=== PATIENT | female | born 1995 | race African-American/Black ===

== ENCOUNTER 2019-09-10 10:23 | Emergency (ER) | payer OTHER ==
[2019-09-10 10:48] VITALS: BMI 33.5
--- NOTE | 2019-09-10 11:08 | PDOC ---
History of Present Illness - History of Present Illness Initial Comments: 09/10/19 11:08 24 year old female 10 weeks by LMP (July 01, 2018 ) presenting with HTN, sore throat, and nasal congestion from her first CASE CHECKER appointment at [address] [place] [address]. She states that she was have her vitals measured in the clinic prior to seeing her CASE CHECKER and was told that her pressure was high and that she was high risk. She does admit that she was told her blood pressure was high prior to the as well but she was not medicated. Denies chest pain , sob, headache, fevers, chills, or other symptoms. <Ric Jin - Last Filed: 09/10/19 16:16> <Johan Torre - Last Filed: 09/14/19 10:35> - General Chief Complaint: Blood Pressure Problem Stated Complaint: HYPERTENSION Time Seen by Provider: 09/10/19 11:02 Past History - Past Medical History CVA: No COPD: No CHF: No DVT: No Dementia: No - Immunization History Immunization Up to Date: Yes - Psycho Social/Smoking Cessation Hx Smoking History: Never smoked Hx Alcohol Use: No Drug/Substance Use Hx: No <Ric Jin - Last Filed: 09/10/19 16:16> <Johan Torre - Last Filed: 09/14/19 10:35> - Past Medical History Allergies/Adverse Reactions: Allergies Allergy/AdvReac Type Severity Reaction Status Date / Time No Known Allergies Allergy Verified 09/10/19 10:43 Home Medications: Ambulatory Orders Labetalol HCl [Normodyne -] 200 mg PO TID #30 tablet 09/10/19 Review of Systems - Review of Systems Constitutional: No: Chills, Diaphoresis, Fever HEENTM: No: Eye Pain, Blurred Vision, Tearing Respiratory: Yes: Cough. No: Orthopnea, Shortness of Breath Cardiac (ROS): No: Chest Pain, Irregular Heart Rate, Lightheadedness, Palpitations ABD/GI: No: Diarrhea, Nausea, Vomiting : No: Burning, Dysuria, Discharge Musculoskeletal: No: Back Pain Integumentary: No: Bruising, Erythema, Flushing Neurological: No: Headache, Numbness, Paresthesia, Tremors, Weakness Psychiatric: No: Anxiety, Depression Endocrine: No: Flushing, Increased Thirst, Increased Urine, Unexplained Weight Gain Hematologic/Lymphatic: No: Anemia, Blood Clots, Easy Bleeding <Ric Jin - Last Filed: 09/10/19 16:16> *Physical Exam - Vital Signs Last Vital Signs Temp Pulse Resp BP Pulse Ox 97.8 F 83 18 157/110 H 99 09/10/19 10:43 09/10/19 10:43 09/10/19 10:43 09/10/19 10:43 09/10/19 10:43 - Physical Exam General Appearance: Yes: Nourished, Appropriately Dressed. No: Apparent Distress HEENT: positive: EOMI, AUGUST. negative: Normal ENT Inspection (nasal congestion) , Normal Voice (slightly coarse voice) Neck: positive: Trachea midline, Normal Thyroid, Supple, Lymphadenopathy (R), Lymphadenopathy (L). negative: Tender, Rigid Respiratory/Chest: positive: Lungs Clear, Normal Breath Sounds. negative: Chest Tender, Respiratory Distress, Accessory Muscle Use Cardiovascular: positive: Regular Rhythm, Regular Rate Gastrointestinal/Abdominal: positive: Normal Bowel Sounds, Flat, Soft. negative : Tender Lymphatic: negative: Adenopathy, Tenderness Musculoskeletal: positive: Normal Inspection. negative: Decreased Range of Motion Extremity: positive: Normal Capillary Refill, Normal Inspection, Normal Range of Motion. negative: Tender Integumentary: positive: Normal Color, Dry, Warm Neurologic: positive: Fully Oriented, Alert, Normal Mood/Affect, Normal Response , Motor Strength 5/5 <Ric Jin - Last Filed: 09/10/19 16:16> - Vital Signs Last Vital Signs Temp Pulse Resp BP Pulse Ox 98.5 F 101 H 19 140/87 99 09/10/19 15:33 09/10/19 16:24 09/10/19 15:33 09/10/19 16:24 09/10/19 16:24 <Johan Torre - Last Filed: 09/14/19 10:35> ED Treatment Course - LABORATORY CBC & Chemistry Diagram: 09/10/19 11:20 09/10/19 11:20 <Ric Jin - Last Filed: 09/10/19 16:16> - LABORATORY CBC & Chemistry Diagram: 09/10/19 11:20 09/10/19 11:20 - ADDITIONAL ORDERS Additional order review: 09/10/19 14:44 Throat Culture - Final Throat NO BETA HEMOLYTIC STREPTOCOCCI ISOLATED 09/10/19 11:46 Urine Culture - Final Urine - Urine Clean Catch NO GROWTH OBTAINED 09/10/19 11:20 RBC 4.68 MCV 81.1 MCHC 34.1 RDW 15.6 MPV 9.1 Neutrophils % 72.0 Lymphocytes % 15.9 Monocytes % 9.2 Eosinophils % 2.5 Basophils % 0.4 - Medications Given in the ED: ED Medications Discontinued Medications Generic Name Dose Route Start Last Admin Trade Name Dmitry PRN Reason Stop Dose Admin Labetalol HCl 200 mg 09/10/19 11:16 09/10/19 11:40 Normodyne - PO 09/10/19 11:17 200 mg ONCE ONE Administration Labetalol HCl 200 mg 09/10/19 13:16 09/10/19 13:38 Normodyne - PO 09/10/19 13:17 200 mg ONCE ONE Administration Nifedipine 30 mg 09/10/19 14:41 09/10/19 14:51 Procardia Xl - PO 09/10/19 14:42 30 mg DAILY STA Administration <Johan Torre - Last Filed: 09/14/19 10:35> Medical Decision Making - Medical Decision Making 24 year old female with no documented pmh but told that she was hypertensive in the past but never prescribed medicine presenting 10 weeks by lmp with HTN. Pressures here were in the 170s which eventually were controlled to 142/90 after labetalol 200 mg x2 and nifedipine 30 PO after talking to Dr. Mccormick. 09/10/19 15:54 <Ric Jin - Last Filed: 09/10/19 16:16> Discharge - Discharge Information Problems reviewed: Yes - Admission No <Ric Jin - Last Filed: 09/10/19 16:16> <Johan Torre - Last Filed: 09/14/19 10:35> - Discharge Information Clinical Impression/Diagnosis: HTN (hypertension) Qualifiers: Hypertension type: unspecified Qualified Code(s): I10 - Essential (primary) hypertension Proteinuria Qualifiers: Proteinuria type: unspecified Qualified Code(s): R80.9 - Proteinuria, unspecified Condition: Stable Disposition: HOME - Additional Discharge Information Prescriptions: Labetalol HCl [Normodyne -] 200 mg PO TID #30 tablet - Follow up/Referral Referrals: [facility] [Provider Group] - Patient Discharge Instructions Patient Printed Discharge Instructions: DI for High Blood Pressure Additional Instructions: Please use your medicine as prescribed and please follow up with the PCP at your appointment. Please follow up with your new [facility]ELF [facility] TEACHER at [place] as directed. Please return to the ED if you have new or worsening symptoms. - Post Discharge Activity Work/Back to School Note: Back to Work
[2019-09-10] MEDS ORDERED: LABETALOL HCL 200 MG TABLET (FP) PO ONE ×2 (11:16→13:16)
[2019-09-10 11:36] LABS: BASO % 0.4 % (0-2.0); EOS % 2.5 % (0-4.5); HEMATOCRIT 37.9 % (32.4-45.2); HEMOGLOBIN 12.9 GM/dL (10.7-15.3); LYMPH % 15.9 % (8-40); MCH 27.7 pg (25.7-33.7); MCHC 34.1 g/dl (32.0-36.0); MEAN CELL VOLUME 81.1 fl (80-96); MEAN PLT VOLUME 9.1 fl (7.5-11.1); MONO % 9.2 % (3.8-10.2); PLATELET COUNT 265 K/MM3 (134-434); RBC 4.68 M/mm3 (3.60-5.2); RDW 15.6 % (11.6-15.6); WHITE BLOOD COUNT 12.8 K/mm3 (4.0-10.0)
[2019-09-10] MEDS ORDERED: LABETALOL HCL 100 MG TABLET (FP) ONE (11:36)
[2019-09-10 11:59] LABS: INR 0.92 (0.83-1.09); PROTHROMBIN TIME (PATIENT) 10.9 SEC (9.7-13.0)
[2019-09-10 12:02] LABS: ALBUMIN 3.1 g/dl (3.4-5.0); BILIRUBIN,TOTAL 0.1 mg/dL (0.2-1); BLOOD UREA NITROGEN 9.7 mg/dL (7-18); CALCIUM 9.1 mg/dL (8.5-10.1); CREATININE 0.9 mg/dL (0.55-1.3); POTASSIUM 3.7 mmol/L (3.5-5.1); TOT PROT 7.2 g/dl (6.4-8.2)
[2019-09-10 12:39] LABS: EPI CELLS 2.4 /HPF (0-5/HPF); HYALINE CASTS 2 /lpf (0-8); PH,URINE 6.5 (5.0-8.0); URINE APPEARANCE CLEAR; URINE BACTERIA 30.8 /hpf (NEGATIVE); URINE BILIRUBIN NEGATIVE (NEGATIVE); URINE COLOR YELLOW; URINE GLUCOSE (UA) NEGATIVE (NEGATIVE); URINE KETONE NEGATIVE (NEGATIVE); URINE LEUK ESTERASE NEGATIVE (NEGATIVE); URINE NITRITE NEGATIVE (NEGATIVE); URINE PROTEIN 3+ (NEGATIVE); URINE RBC 1 /hpf (0-4); URINE WBC 2 /hpf (0-5)
--- NOTE | 2019-09-10 12:53 | EKG ---
Test Reason : Blood Pressure : / mmHG Vent. Rate : 069 BPM Atrial Rate : 069 BPM P-R Int : 132 ms QRS Dur : 084 ms QT Int : 404 ms P-R-T Axes : 048 047 034 degrees QTc Int : 432 ms NORMAL SINUS RHYTHM NORMAL ECG NO PREVIOUS ECGS AVAILABLE Confirmed by LEN STEELE MD ([id number]) on 09/10/2019 12:53:07 PM Referred By: Confirmed By:LEN STEELE MD
--- NOTE | 2019-09-10 13:05 | PDOC ---
Documentation entered by Rasheed Harmon SCRIBE, acting as scribe for Johan Torre MD. Johan Torre MD: This documentation has been prepared by the Eden germain Nirvannie, SCRIBE, under my direction and personally reviewed by me in its entirety. I confirm that the documentation accurately reflects all work, treatment, procedures, and medical decision making performed by me. Attending Attestation - Resident Resident Name: Ric Jin - ED Attending Attestation I have performed the following: I have examined & evaluated the patient, The case was reviewed & discussed with the resident, I agree w/resident's findings & plan, Exceptions are as noted - HPI HPI: 09/10/19 12:05 CC: Elevated blood pressure. HPI: The patient is a 24 year old 10 weeks female A1, with a significant past medical history of elevated blood pressure (not on medications or formal hypertension diagnosis), who presents to the emergency department with elevated blood pressure. As per patient, she was at her first DIRECTOR WRITING appointment when her blood pressure was observed to be elevated upon checking her vitals. She notes being told she has fluctuating blood pressures in the past thus, was never placed on hypertension medications. Patient endorses associated nasal congestion and sore throat. She denies recent fevers, chills, headache or dizziness. She denies recent nausea, vomit, diarrhea or constipation. She denies recent dysuria, frequency, urgency or hematuria. She denies recent chest pain or shortness of breath. Allergies: NKDA DIRECTOR WRITING: Dr. Mccormick - Physicial Exam PE: 09/10/19 13:17 Vitals: Triage Vital signs reviewed General Appearance: No acute distress, well nourished well developed, Head: Atraumatic, Cardiac: Regular rate and rhythym, no murmurs, no rubs, no gallops, Lungs: Clear to auscultation bilateral, good air movement bilaterally, Abdomen: Soft, non distended, normal bowel sounds, non tender to palpation Extremities: Full range of motion to all extremities, no cyanosis, clubbing, or edema Skin: Warm and dry, no rashes or lesions, no rash, no petechiae Neuro: AOX3; cranial Nerves 2-12 grossly intact, strength intact to all extremities, sensation intact to all extremities, gait normal Psych: Normal mood, normal affect - Medical Decision Making 09/10/19 13:17 10 weeks sent to the ED secondary to hypertension patient completely asymptomatic at this time We will check labs OB limited ultrasound p.o. labetalol observe and reassess 115 reevaluation patient still with no complaints patient still mildly elevated hypertension too early for preeclampsia by dates We will dose additional 200 mg of labetalol observe and reassess 09/10/19 Case discussed with patient's CUSTOMER SERVICE VOICE Dr. Rush recommends adding nifedipine to labetalol Goal systolic less than 140 We will observe and reassess Dr. Pinedo to gini contreras
[2019-09-10] MEDS ORDERED: NIFEdipine E.R. 30 MG TABLET (FP) PO STA (14:41)
[2019-09-10 14:42] VITALS: TEMP 98.5
[2019-09-10] MEDS ORDERED: NIFEdipine E.R. 30 MG TABLET (FP) ONE (14:48)
[2019-09-10 16:25] VITALS: BP 140/87; PULSE 101
== END 2019-09-10 17:02 | disposition home or self-care (01) ==
LOC: JER 10:23
DX: O26.891 Other specified pregnancy related conditions, first trimester (principal); O10.911 Unspecified pre-existing hypertension complicating pregnancy, first trimester; Z3A.10 10 weeks gestation of pregnancy
CPT/HCPCS: 36415; 76815; 80053; 81003; 82248; 83735; 84702; 85025; 85610; 85730; 87070; 87086; 87880; 93005; 93010; 99283-25